=== PATIENT | female | born 1980 | race Caucasian/White ===

== ENCOUNTER 2022-08-31 09:07 | Inpatient (IN) ==
--- NOTE | 2022-08-10 16:10 | PAT Medication Instructions ---
Medication Instructions Date of Service August 10, 2022 Home Medications ibuprofen 600 mg tablet 600 mg PO Q8H PRN Pain ASK your surgeon for instructions ibuprofen 600 mg tablet 600 mg PO Q8H PRN Pain OTHERWISE NOTHING TO EAT OR DRINK AFTER MIDNIGHT Other Notes If you have any questions please call us at [phone] or [phone] or [phone] or [phone]
--- NOTE | 2022-08-17 12:49 | Anesthesiology Consultation ---
Date of Service August 17, 2022 Assessment & Plan (1) Encounter for pre-operative examination: - Check test AM DOS - COVID screening: Per assessment on 08/17: No known COVID-19 positive contacts or current COVID-19 related symptoms. Travel screen negative. At surgeon discretion if preop Covid testing being done. - Cardiology visit (07/24/22): " Lightheadedness.. Reports this has improved. Only happens once in a while when looking up.. Palpitations.. Exercise tolerance good. EKG negative for ischemia.. Holter 06/2022: Baseline rhythm: Sinus rhythm with average rate of 76 bpm. 1.6-second delay at 339 am.. Follow- up 1 week after echo. - Awaiting upcoming cardiology-ordered Echo (08/23) + subsequent cardiology visit ([facility]). Chart Review Chart Review: Patient seen in Pre Admission Testing Teaching & Discussion Pre-Anesthesia Teaching/Discussion Notes: Instructed NPO after midnight before surgery,except medications with 15 cc of water. Medication instructions provided according to the PAT guidelines. History Surgery Operation Date: 08/31/22 10:05 Proposed Procedures p L4-S1 Decompression and Fusion, Spinal Cord Monitoring - Avi Renee, Height/Weight Height: 5 ft 3 in Weight: 93.7 kg Allergies Allergy/AdvReac Type Severity Reaction Status Date / Time No Known Allergies Allergy Verified 08/10/22 08:59 Medications Home Medications Medication Instructions Recorded Confirmed Last Taken ibuprofen 600 mg tablet 600 mg PO Q8H PRN Pain 08/10/22 08/10/22 Unknown Past Medical History Medical History Degenerative disc disease Fluttering heart Dr. Ramírez ([employer]) working up pt currently History of COVID-19 x 2 (12/2020 & 07/2021)>resolved History of depression Exercise / Class Metabolic Activity II 4-5 Yardwork/Stairs/Walk up hill Past Family History Family History Other No family history of adverse response to anesthesia Past Surgical History Surgical History H/O wrist surgery rt (hardware intact) History of tooth extraction Hx of nasal septoplasty Past Anesthesia History No Hx of Anesthesia Complications and No Family Hx of Anesthesia Complications History of PONV No Hx of PONV and No Hx of Motion Sickness Social History Smoking Status: Former smoker tobacco type: cigarettes Do You Dip or Chew Tobacco: No Smoking End Date: Quit 11 years ago Hx Alcohol Use: Yes alcohol intake frequency: holidays/special occasions only Hx Substance Use: No substance use type: does not use Review of Systems Hx heart fluttering (single episode)- reason for recent cardiology evaluation and testing. No further heart fluttering/palpitations since event. Patient denies chest pain, shortness of breath, dyspnea on exertion, fever, chills, cough, wheezing. Physical Exam Vital Signs VITALS BP 117/85 P 70 TEMP 98.4 SP02 99%RA RESP 16 PHYSICAL Full cervical extension range of motion. Full TMJ range of motion. TMD 4 finger breaths Mallampati Score 2 Dentition: missing molars, + several crowns/caps (including upper front) Lungs: clear throughout to auscultation Cardiac: regular rate and rhythm, no murmurs noted Spine: normal Carotid arteries: negative bruit Extremities: no LE edema Lab Results Anesthesia Preop Results Results Anesthesia Widget: WBC 7.24 K/ul (4.8-10.8) 08/17/22 Hgb 14.3 g/dl (12.0-16.0) 08/17/22 Hct 42.2 % (37.0-47.0) 08/17/22 Plt 346 K/uL (130-400) 08/17/22 Na 138 mmol/L (136-145) 08/17/22 K 4.7 mmol/L (3.5-5.1) 08/17/22 Cl 104 mmol/L (98-107) 08/17/22 CO2 30 mmol/L (21-32) 08/17/22 BUN 12 mg/dl (6-23) 08/17/22 Creat 0.69 mg/dl (0.6-1.2) 08/17/22 Glucose Level 84 mg/dl (70-99(Fasting)) 08/17/22 PT 10.2 Seconds (9.0-12.0) 08/17/22 PTT 25.3 Seconds (21.0-31.0) 08/17/22 INR 0.9 (0.9-1.1) 08/17/22 Urine Color Yellow 08/17/22 Urine Appearance Clear (Clear) 08/17/22 Urine pH 6.0 (4.5-7.5) 08/17/22 Urine Specific [place] 1.017 (1.000-1.030) 08/17/22 Urine Protein Negative (Negative) 08/17/22 Urine Glucose (UA) Negative (Negative) 08/17/22 Urine Ketones Negative (Negative) 08/17/22 Urine Blood 2+ (Negative) H 08/17/22 Urine Nitrite Negative (Negative) 08/17/22 Urine Bilirubin Negative (Negative) 08/17/22 Urine Urobilinogen Negative (Negative) 08/17/22 Urine Leukocyte Esterase Negative (Negative) 08/17/22 Urine WBC (Auto) 1-5 /hpf (0-5) 08/17/22 Urine RBC (Auto) 5-10 /hpf (0-4) H 08/17/22 Urine Hyaline Casts (Auto) 1-5 /lpf (0-5) 08/17/22 Urine Epithelial Cells (Auto) 20-30 /lpf (0-5) H 08/17/22 Urine Bacteria (Auto) Negative (Negative) 08/17/22 Blood Type O Positive 08/17/22 Antibody Screen NEGATIVE 08/17/22 Testing Electrocardiogram Date: 07/24/22 Unusual P axis, possible ectopic atrial rhythm at 76bpm. Left posterior fascicular block. NS TWA. *Suspected arm lead reversal, interpretation assumes no reversal* Chest X-Ray Date: 08/17/22 Findings: + NAD Stress Test Date: 07/17/22 Type: exercise Exercise tolerance good. Exercise stress test negative for ischemia by EKG criteria. 101% MPHR. COVID-19 Risk Screen Screening Information COVID-19 Screen Date: 08/17/22 Exposure 21 Days Family/Household +COVID Last 21 Days: No Exposure 10 Days Any COVID Exposure Last 10 Days: No Symptoms Last 10 Days Experienced COVID Sx Last 10 Days: No + COVID 0-90 Days COVID + in Last 0-90 Days: No
[~2022-08-31 09:07] MED LIST: ACETAMINOPHEN 500 MG TAB PO SCH; CeleBREX 200 MG CAP PO SCH; GABAPENTIN 900 MG DOSE PO SCH; LR 15ML/HR IV SCH; ceFAZolin 2000MG 2,000 MG/15 ML SYR IV SCH
[2022-08-31] MEDS ORDERED: HYDROmorphone INJ 1 MG/ML SYRINGE IV PRN ×2 (10:23→16:20)
[2022-08-31] MEDS ORDERED: ATROPINE SULFATE 0.1 MG/ML 10ML SYR IV PRN (10:23)
[2022-08-31] MEDS ORDERED: ONDANSETRON INJ 2 MG/ML 2 ML VIAL IV PRN ×2 (10:23→16:20)
[2022-08-31] MEDS ORDERED: ePHEDrine sulfate 50 MG/ML AMP IV PRN (10:23)
[2022-08-31] MEDS ORDERED: DEXAMETHASONE SOD INJ 4 MG/ML VIAL ONE (10:39)
[2022-08-31] MEDS ORDERED: ONDANSETRON INJ 2 MG/ML 2 ML VIAL ONE (10:39)
[2022-08-31] MEDS ORDERED: PROPOFOL IV EMULSION 10 MG/ML 20 ML VIAL IV ONE ×2 (10:39→13:12)
[2022-08-31] MEDS ORDERED: ROCURONIUM BROMIDE 10 MG/ML 5 ML VIAL IV ONE ×4 (10:39→12:49)
[2022-08-31] MEDS ORDERED: fentaNYL citrate PF 100 MCG/2 ML VIAL ONE (10:39)
[2022-08-31] MEDS ORDERED: LIDOCAINE 2% 2 ML VIAL/AMP(20MG/ML) INFIL ONE (10:39)
[2022-08-31] MEDS ORDERED: MIDAZOLAM HCL 1 MG/ML 2ML VIAL ONE (10:39)
--- NOTE | 2022-08-31 11:03 | History & Physical Bridge Note ---
Date of Service August 31, 2022 History & Physical Bridge Note I have examined the patient, reviewed the History & Physical and in the interval since the performance of the History & Physical I have noted the following changes of clinical significance: no changes noted
--- NOTE | 2022-08-31 11:04 | History & Physical Report ---
Date of Service August 31, 2022 Assessment & Plan (1) Neurogenic claudication due to lumbar spinal stenosis: Plan: L4-S1 decompression and fusion History of Present Illness Chief Complaint: Back and leg pain Primary Care Provider: NO PCP This is a 41-year-old female who presents with chronic persistent back and leg pain after failing course of nonoperative care she is here for surgical invention. Allergies Allergy/AdvReac Type Severity Reaction Status Date / Time No Known Allergies Allergy Verified 08/31/22 09:38 Home Medications Medication Instructions Recorded Confirmed Type ibuprofen 600 mg tablet 600 mg PO Q8H PRN Pain 08/10/22 08/31/22 History Past Med/Surg History Medical History Degenerative disc disease Fluttering heart Dr. Ramírez ([employer]) working up pt currently History of COVID-19 x 2 (12/2020 & 07/2021)>resolved History of depression Surgical History H/O wrist surgery rt (hardware intact) History of tooth extraction Hx of nasal septoplasty Family History Other No family history of adverse response to anesthesia Social History Smoking Status: Former smoker Smoking End Date: Quit 11 years ago; Second Hand Exposure: No; Do You Dip or Chew Tobacco: No; Hx Alcohol Use: Yes Hx Substance Use: No Preferred Language: Uzbek Property Disposal Manager Required: No Beliefs That Will Affect Care: None Current Living Situation: Family Current Living Situation Comment: with daughter Feels Safe at Home: Yes Safety Concerns: Feels Safe At This Time Assistive Devices: None Physical Exam Physical Exam: Patient is alert and oriented Heart regular rhythm Lungs clear Results & Data Results & Data Vital Signs (Past 12 Hours) Vital Signs Temp Pulse Resp BP Pulse Ox O2 Del Method 08/31/22 09:32 37.1 C 67 20 128/88 99 Room Air
[2022-08-31] MEDS ORDERED: ceFAZolin 330 MG/ML 1 GM VIAL ONE (11:17)
[2022-08-31] MEDS ORDERED: BUPIVACAINE/EPINEPHRINE 0.25% 1:200,000 30 ML VIAL ONE (11:17)
[2022-08-31] MEDS ORDERED: FLOSEAL HEMOSTATIC MATRIX 10ML TOP ONE (12:06)
[2022-08-31] MEDS ORDERED: GLYCOPYRROLATE 0.2 MG/ML VIAL ONE (13:18)
[2022-08-31] MEDS ORDERED: NEOSTIGMINE METHYLSULFATE 1 MG/ML 10ML VIAL ONE (13:18)
--- NOTE | 2022-08-31 13:31 | Operative Report ---
Post Operative Report Pre & Post Diagnosis Operation Date: 08/31/22 10:45 Pre-Op Diagnosis: Lumbar Region Radiculopathy Post-Op Diagnosis: Lumbar Region Radiculopathy I identified the patient and participated in the time-out.: Yes Procedure Operation Date: 08/31/22 10:45 Actual Procedures 1. Lumbar decompression bilateral medial facetectomies and foraminotomies L3- L4, L4-5 and L5-S1. #2 posterior spinal fusion L4-L5 L5-S1. #3 placed posterior instrumentation L4-S1. #4 interbody fusion L4-L5 L5-S1. #5 placement of Spira 12 x 26 mm at L4-5 and 13 x 26 mm at L5-S1. #6 placement locally harvested morselized autograft and posterior gutters. #7 placement I factor bone of the test interbody space and posterior gutters. Surgeon Avi Renee, DO Inking Machine Tender Luis Manuel Sifuentes Estimated Blood Loss 150 Findings See Below Patient is 5 foot 3 weighing over 93 kg with a BMI in excess of 36. Patient's body habitus did contribute to significant technical difficulty required deepest retractors and longer instruments in order to perform her procedure. This at least 50% increased operative time. Specimens None Indications This is a 41-year-old female presents with above-mentioned diagnosis after failed extensive course of nonoperative care she is here for surgical invention. Description of Procedure Patient was met with identified informed consent obtained. Patient was then taken to the operative suite underwent a patient placed in a prone position the [place] table top Kamar frame. All bony promises well-padded eyes inspected to ensure no external pressure placed upon them. This point lumbar spine was prepped and draped in a sterile fashion. Sharp dissection with the assistance of Bovie cautery to form down to and exposing the lamina transverse processes of L4-5 and sacral ala bilaterally. From caudal cephalad fashion complete pneu monectomy of L5 L4 impression laminectomy of L3 was performed including bilateral medial facetectomies and foraminotomies addressing severe spinal stenosis. Pedicle screws then placed in L4-L5 and S1 levels bilaterally with assistance of fluoroscopy and the properly sized yen placed. By way of transforaminal approach on the right a complete discectomy of L5-S1 was performed endplates corrected to subcortical bleeding bone and a 13 x 26 mm Spira cage with I factor tapped in position. Then proceeded L4-L5 and again by way of a transforaminal approach on the right complete discectomy performed endplates curetted to subcortical bleeding bone and a 12 x 26 mm Spira cage with I factor tapped in position. The rods were then compressed locked into final position bilaterally. The transverse processes of L for L5 and sacral ala burred to subcortically bone. I factor bone of the test and locally harvested morselized autograft was placed in the posterior gutters. 15 round ARTURO drain inserted. The incision was then closed with 1 Vicryl to fascia 2-0 Vicryl subcutaneously and 4 Monocryl for final skin closure. Steri-Strips sterile dressings placed. Patient waken taken PACU stable condition. Please note spinal cord monitoring was utilized at the procedure no changes noted. Lastly Luis Manuel Sifuentes was present at the entire surgeon while the patient positioning complex portion of the surgery and final skin closure. I attest to the content of the Intraoperative Record and any orders documented therein. Any exceptions are noted below.
--- NOTE | 2022-08-31 13:36 | Fluoroscopy Report ---
INTRAOPERATIVE RADIOGRAPHS CLINICAL HISTORY: Lumbar spinal fusion surgery. Fluoro time: 29 seconds Ka,r: 29.24 mGy FINDINGS: 2 spot fluoroscopic views of the lumbar spine are presented. There has been discectomy at L 4-L5 and L5-S1 with laminectomy and posterior fusion from L4-S1. Interpedicular screws are present at all levels. The orthopedic hardware appears intact. IMPRESSION: Intraoperative images from lumbar spinal fusion surgery as above. Electronically signed by: Servando Jenkins M.D. 08/31/2022 1:34 PM
[2022-08-31] MEDS: fentaNYL citrate PF 100 MCG/2 ML VIAL IV PRN ×4 (13:53→14:08)
--- NOTE | 2022-08-31 14:19 | Anesthesiology Progress Note ---
Date of Service August 31, 2022 Anesthesia Post Procedure Vital Signs Vital Signs: Temp Pulse Pulse Resp BP BP Pulse Ox 08/31/22 14:15 63 14 119/88 100 08/31/22 14:05 72 12 119/71 99 08/31/22 13:55 72 16 114/78 100 08/31/22 13:47 36.2 C L 61 14 127/81 100 08/31/22 09:32 37.1 C 67 20 128/88 99 O2 Del Method O2 Flow Rate 08/31/22 14:15 Nasal Cannula 2 08/31/22 14:05 Nasal Cannula 2 08/31/22 13:55 Nasal Cannula 3 08/31/22 13:47 Nasal Cannula 3 08/31/22 09:32 Room Air Pain Intensity Lower Back: Pain Intensity: 4 Transfer of Care Handoff Completed per policy Notes Mental Status: alert / awake / arousable and participated in evaluation Patient Amnestic to Procedure: Yes Nausea / Vomiting: adequately controlled Pain: adequately controlled Airway Patency, RR, SpO2: stable & adequate BP & HR: stable & adequate Hydration State: stable & adequate Anesthetic Complications: no major complications apparent and Pt Satisfied with anesthetic care
[2022-08-31] MEDS ORDERED: ONDANSETRON 4 MG OD TAB PO PRN (16:20)
[2022-08-31] MEDS ORDERED: hydrOXYzine HCl 25 MG TAB PO PRN (16:20)
[2022-08-31] MEDS ORDERED: FAMOTIDINE 20 MG TAB PO PRN (16:20)
[2022-08-31] MEDS ORDERED: bisacodyL 10 MG SUPP PR PRN (16:20)
[2022-08-31] MEDS ORDERED: diphenhydrAMINE Capsule 25 MG CAP PO PRN (16:20)
[2022-08-31] MEDS ORDERED: LORazepam 0.5 MG TAB PO PRN (16:20)
[2022-08-31] MEDS ORDERED: PROMETHAZINE HCL 12.5 MG in SODIUM CHLORIDE 0.9% 50 ML IV PRN (16:20)
[2022-08-31] MEDS ORDERED: MAGNESIUM HYDROXIDE SUSP 30 ML UDC PO PRN (16:20)
[2022-08-31] MEDS ORDERED: METOCLOPRAMIDE HCL INJ 5 MG/ML 2 ML VIAL IV PRN (16:20)
[2022-08-31] MEDS ORDERED: DO NOT ADMINISTER FLU VACCINE PRN (16:20)
[2022-08-31] MEDS ORDERED: ACETAMINOPHEN 500 MG TAB PO PRN (16:20)
[2022-08-31] MEDS ORDERED: traMADol HCL 50 MG TABLET PO PRN (16:20)
[2022-08-31] MEDS ORDERED: NALOXONE HCL 0.4 MG/1 ML VIAL/CARP IV PRN (16:20)
[2022-08-31] MEDS ORDERED: LORazepam 2 MG/1 ML VIAL IV PRN (16:20)
[2022-08-31] MEDS ORDERED: ACETAMINOPHEN 1,000 MG/100 ML VIAL IV PRN (16:20)
[2022-08-31] MEDS ORDERED: SOD PHOSPHATE/SOD BIPHOSPHATE ENEMA 132 ML BTL PR PRN (16:20)
[2022-08-31] MEDS ORDERED: HYDROmorphone INJ 0.5 MG/0.5 ML SYR IV PRN (16:20)
[2022-08-31] MEDS ORDERED: DO NOT ADMINISTER PNEUMOCOCCAL VACCINE PRN (16:20)
[2022-08-31] MEDS ORDERED: ALUMINUM/MAGNESIUM SUSP 30 ML UDC PO PRN (16:20)
[2022-08-31] MEDS: LACTATED RINGER'S 1,000 ML IV SCH ×2 (16:30→23:05)
[2022-08-31] MEDS: oxyCODONE HCL IR 5 MG TAB (IMMEDIATE RELEASE) PO PRN (16:38)
[2022-08-31] MEDS: ceFAZolin 2000MG 2,000 MG/15 ML SYR IV SCH (20:17)
[2022-08-31] MEDS: DOCUSATE SODIUM/SENNA 50/8.6MG TAB PO SCH (20:18)
[2022-09-01] MEDS: ceFAZolin 2000MG 2,000 MG/15 ML SYR IV SCH (03:19)
[2022-09-01] MEDS: LACTATED RINGER'S 1,000 ML IV SCH (05:39)
[2022-09-01] MEDS: POLYETHYLENE (MIRALAX) 17 GM PACK PO SCH ×3 (05:45→17:17)
[2022-09-01] MEDS: oxyCODONE HCL IR 5 MG TAB (IMMEDIATE RELEASE) PO PRN ×3 (07:22→20:16)
[2022-09-01] MEDS: dexAMETHasone 6 MG in SYRINGE 0 ML IV SCH (07:32)
[2022-09-01 07:44] LABS: Basophils # (auto) 0.03 K/uL (0-0.2); Basophils % (auto) 0.2 %; Eosinophils # (auto) 0.01 K/uL (0-0.50); Eosinophils % (auto) 0.1 %; Hematocrit (blood only) 35.3 % (37.0-47.0); Hemoglobin 11.7 g/dl (12.0-16.0); Immature Granulocytes # (auto) 0.06 K/uL (0.01-0.20); Immature Granulocytes % (auto) 0.4 %; Lymphocytes # (auto) 2.16 K/uL (1.2-3.4); Lymphocytes % (auto) 15.6 %; Mean Corpuscular Hemoglobin 28.9 pg (25.0-34.0); Mean Corpuscular Hgb Conc 33.1 g/dL (32.0-36.0); Mean Corpuscular Volume 87.2 fL (80.0-100.0); Mean Platelet Volume 10.8 fL (9.4-12.4); Monocytes # (auto) 0.96 K/uL (0.11-0.59); Monocytes % (auto) 6.9 %; Neutrophils # (auto) 10.67 K/uL (1.40-6.50); Neutrophils % (auto) 76.8 %; Platelet Count 258 K/uL (130-400); RDW Coefficient of Variation 11.9 % (11.5-14.5); RDW Standard Deviation 38.2 fL (36.4-46.3); Red Blood Count 4.05 M/uL (4.20-5.40); White Blood Count 13.89 K/ul (4.8-10.8)
[2022-09-01 07:57] LABS: BUN Creatinine Ratio 15.4 (10-20); Calcium 9.1 mg/dl (8.6-10.3); Creatinine Clr Calc Pharmacy 102.2 ml/min; Est GFR (African American) 108.7 ml/min; Est GFR (Non-African American) 93.8 ml/min; Potassium 4.6 mmol/L (3.5-5.1)
--- NOTE | 2022-09-01 08:33 | Orthopedic Progress Note ---
Date of Service September 01, 2022 Assessment & Plan (1) Neurogenic claudication due to lumbar spinal stenosis: Plan: This time we will initiate physical therapy monitor ARTURO output hopefully discharge home the next few days. Admission and Anticipated Discharge Date Admission Date: August 31, 2022 Subjective Back pain controlled leg symptoms improved Physical Exam Physical Exam: Patient is currently in bed. She is comfortable. Is good strength testing. Results & Data Vital Signs (Past 12 Hours) Vital Signs Temp Pulse Pulse Resp BP BP Pulse Ox 09/01/22 07:48 36.5 C 78 16 121/77 97 09/01/22 03:08 36.6 C 74 16 104/68 97 08/31/22 23:09 36.8 C 86 16 104/69 96 O2 Del Method 09/01/22 07:48 Room Air 09/01/22 03:08 Room Air 08/31/22 23:09 Room Air
[2022-09-01] MEDS: DOCUSATE SODIUM/SENNA 50/8.6MG TAB PO SCH (20:16)
[2022-09-02] MEDS: POLYETHYLENE (MIRALAX) 17 GM PACK PO SCH ×5 (00:12→23:41)
[2022-09-02] MEDS: oxyCODONE HCL IR 5 MG TAB (IMMEDIATE RELEASE) PO PRN ×3 (07:43→20:25)
[2022-09-02] MEDS: dexAMETHasone 6 MG in SYRINGE 0 ML IV SCH (07:44)
--- NOTE | 2022-09-02 10:28 | Orthopedic Progress Note ---
Date of Service September 02, 2022 Assessment & Plan (1) Neurogenic claudication due to lumbar spinal stenosis: Plan: At this time we will maintain the ARTURO drain and encourage ambulation as tolerated. Anticipate discharge home tomorrow. Admission and Anticipated Discharge Date Admission Date: August 31, 2022 Subjective Patient's back pain is controlled. She did have some episodes of leg pain last evening. It seems to be resolved at this time. Physical Exam Physical Exam: On exam she is up and ambulating about the room. She is comfortable. Is good strength testing. Results & Data Vital Signs (Past 12 Hours) Vital Signs Temp Pulse Resp BP Pulse Ox O2 Del Method 09/02/22 07:39 37.0 C 99 H 14 102/67 97 Room Air
[2022-09-02] MEDS: DOCUSATE SODIUM/SENNA 50/8.6MG TAB PO SCH (20:25)
[2022-09-03] MEDS: oxyCODONE HCL IR 5 MG TAB (IMMEDIATE RELEASE) PO PRN ×2 (05:47→10:41)
[2022-09-03] MEDS: POLYETHYLENE (MIRALAX) 17 GM PACK PO SCH ×2 (05:47→11:28)
[2022-09-03] MEDS: dexAMETHasone 6 MG in SYRINGE 0 ML IV SCH (08:04)
--- NOTE | 2022-09-03 10:03 | Discharge Summary ---
Date of Service September 03, 2022 Admission HPI Per Admitting Provider This is a 41-year-old female who presents with chronic persistent back and leg pain after failing course of nonoperative care she is here for surgical invention. Principal Diagnosis Lumbar spinal stenosis with neurogenic claudication Discharge Data Allergies Allergy/AdvReac Type Severity Reaction Status Date / Time No Known Allergies Allergy Verified 08/31/22 09:38 Procedures Performed Operation Date: 08/31/22 10:45 Actual Procedures p L4-S1 Decompression and Fusion with Interbody, Spinal Cord Monitoring(Not Applicable) - Avi Renee DO Ordered Studies 08/31/22 10:45 FL lumbar spine 2-3V Routine Hospital Course (1) Neurogenic claudication due to lumbar spinal stenosis: Patient with lumbar decompression fusion tolerated as well as taken to orthopedic floor postoperatively. Postop day 1 she was up and ambulating progressed throughout the weekend ARTURO drain decreasing probably. Pain well controlled. Excellent strength testing. Subsequent discharge home. Total Time Total Time Spent Total Time Spent (In Minutes): 20 minutes Discharge Plan Discharge Items Patient Disposition: Home - Self-Care Reason For Visit: Lumbar Region Radiculopathy Discharge Diagnosis: Lumbar spinal stenosis with neurogenic claudication and radiculopathy Activity: As commented below Non-emergency contact: Primary Care Provider Call non-emergency contact if: you have any medication questions Follow-up/Referrals: PCP,NO [Physician] - Diet: Regular Addtl Attending Provider Instructions: ACTIVITY RECOMMENDATIONS: SELF CARE INSTRUCTIONS AFTER THORACIC/LUMBAR FUSIONS 1. You may walk to your tolerance. It is good exercise for your legs and back. Expect some back and intermittent leg aches and pains. 2. You may perform "counter-top" level activities (make a sandwich, janeen with a project, etc.). 3. No bending or lifting of more than 10 pounds or back twisting of any nature (roll like a log when turning in bed). 4. You may ride in a car for 20-30 minutes at a time. No driving until after your first visit with your doctor. 5. Frequent changes of position and restricting sitting to 30 minutes at a time will help limit the amount of back spasms and stiffness you may experience. 6. You may discontinue the use of ambulatory aids (cane, crutches, etc.) once your strength and confidence allow. 7. You may rotary rock drilling machine operator the shower and let water strike your incision when you ar rive home at least once daily. Do not take a tub bath, sit in a hot tub or go into a swimming pool until after your first recheck in the office. SPECIAL CARE INSTRUCTIONS: VERY IMPORTANT TO READ AND REVIEW A. Your surgical incision has been closed with a cosmetic suture under the skin that will dissolve in about 6 weeks. In 14 days, you can use a pair of clean scissors and cut the suture that is left outside of the skin at the ends of your incision. 1. The small skin tapes can be removed 7 days after surgery if they have not fallen off by that point. 2. You may keep the wound open to air as much as possible to promote healing after post-op day number 5 unless told otherwise by your doctor. 3. If you think the wound looks like it is becoming infected (redness or worsening drainage) and/or you are experiencing fever, chill or worsening back pain and muscle spasms, contact the office so that we may evaluate you as soon as possible. B. Complications are uncommon, but please contact us if you have any signs or symptoms of: 1. wound infection (fever higher than 102.5 degrees F, redness, separation of wound, drainage, or increasing pain from the incision) 2. blood clots in legs (pain, swelling, redness and warmth in legs) 3. urinary tract infection (fever higher than 102.5 degrees F, burning upon urination or increased frequency of urination) 4. nerve problems (inability to walk on your toes or heels, numbness, loss of bowel or bladder control) 5. any other symptoms that concern you C. Please call the office at if you have any concerns or questions about your operation or recovery. D. No smoking! Smoking drastically decreases the chance of a solid fusion. E. Do not take any anti-inflammatory medications (Indocin, Advil, Motrin, Aspirin, Naprosyn, etc.) as these may inhibit the chance of a solid fusion. Tylenol is okay to take for pain. MANAGING PAIN AFTER SPINAL SURGERY 1. Narcotic medication is intended for short-term use and will be provided for surgical pain. Surgical pain usually lasts for a period of 4-6 weeks. Narcotic medication includes Percocet, Vicodin, Darvocet, Tylenol #3 or Lortab. 2. Longer-term pain is more appropriately treated with non-narcotic medication such as Tylenol ES. 3. Muscle spasm is not appropriately treated with narcotics. Muscle relaxers such as Soma, Flexeril or Skelaxin can be used along with Tylenol ES. 4. Remember that we all live with some "aches and pains". This is not unusual or uncommon after an injury or as we get older. a. Back pain is expected and may include muscle spasms for 4 to 6 weeks after surgery. The pain should gradually improve. If the pain worsens for no apparent reason, please contact the office. b. Intermittent leg pain may also be experienced and should not be concerned about unless it worsens for no apparent reason. If so, please contact the office. 5. We will provide appropriate medication within the normal guidelines of their prescribed use. We will also be very cautious and aware of potential abuse and extended duration of patients' medication needs. a. Pain medications are for your comfort and to assist with sleep and rest so that the tissue can heal. They are not provided in order to return to normal activity and should not be used through the day. To do so or worsening pain at night can result from ongoing tissue damage and development of tolerance to the prescribed medicine. 6. Please allow 2-3 days to process refills. Prescriptions will not be mailed but must be picked up at the office. FOLLOW UP VISIT: Keep your scheduled follow-up appointment. Any questions, please call the office at . Pending Studies at Discharge: No Stand-Alone Forms: My [facility] [employer], Smoking Cessation Medications and DC Order Prescriptions: New tramadol 50 mg tablet 50 mg PO Q6H PRN (Reason: pain, moderate) Qty: 30 0RF oxycodone 5 mg tablet 5 mg PO Q6H PRN (Reason: pain) Qty: 30 0RF Discontinued ibuprofen 600 mg Tablet 600 mg PO Q8H PRN (Reason: Pain) Discharge Orders: Discharge Order (Routine); Ordered 09/03/22 Ordered By: Avi Renee Admission Data Admit Date/Time: 08/31/22 13:34 Attending Provider: Avi Renee Admit Provider: Avi Renee Primary Care Provider: Jenni Maloney
== END 2022-09-03 11:40 | disposition home or self-care (01) | DRG 455 ==
LOC: ASU 09:07 → 3W 13:34